=== PATIENT | male | born 2000 | race Caucasian/White ===

== ENCOUNTER 2020-07-14 20:43 | Emergency (ER) | payer SELFPAY ==
[2020-07-14] MEDS ORDERED: Ibuprofen 100 MG/5 ML UDCUP ONE (21:20)
[2020-07-15 17:59] LABS: SARS-CoV-2 PCR by NAA Not Detected (NotDetected)
== END 2020-07-14 21:32 | disposition home or self-care (01) ==
LOC: MADERS 20:43
DX: H92.01 Otalgia, right ear (principal); J02.9 Acute pharyngitis, unspecified; R05 Cough; Z20.822 Contact with and (suspected) exposure to COVID-19
CPT/HCPCS: 87635; 99284; U0003; U0005

== ENCOUNTER 2020-12-27 17:09 | Emergency (ER) | payer SELFPAY ==
[2020-12-28 12:05] LABS: SARS-CoV-2 PCR by NAA DETECTED (NotDetected)
== END 2020-12-27 18:41 | disposition home or self-care (01) ==
LOC: MADERS 17:09
DX: U07.1 COVID-19 (principal)
CPT/HCPCS: 99284; U0003; U0005

== ENCOUNTER 2021-03-02 13:10 | Emergency (ER) | payer OTHER, SELFPAY ==
[2021-03-02] MEDS ORDERED: Ibuprofen 600 MG TAB ONE (13:56)
== END 2021-03-02 14:13 | disposition home or self-care (01) ==
LOC: MADERS 13:10
DX: S80.01XA Contusion of right knee, initial encounter (principal); V59.50XA Passenger in pick-up truck or van injured in collision with unspecified motor vehicles in traffic accident, initial encounter

== ENCOUNTER 2021-03-05 15:30 | Emergency (ER) | payer SELFPAY | END 2021-03-05 16:40 | disposition home or self-care (01) | LOC: MADERS 15:30 | DX: S50.01XA Contusion of right elbow, initial encounter (principal); W18.30XA Fall on same level, unspecified, initial encounter ==

== ENCOUNTER 2021-07-21 12:40 | Emergency (ER) | payer OTHER, SELFPAY ==
[2021-07-21] MEDS ORDERED: Ibuprofen 800 MG TAB ONE (13:59)
== END 2021-07-21 14:08 | disposition home or self-care (01) ==
LOC: MADERS 12:40
DX: S93.401A Sprain of unspecified ligament of right ankle, initial encounter (principal); W01.0XXA Fall on same level from slipping, tripping and stumbling without subsequent striking against object, initial encounter

== ENCOUNTER 2021-12-15 15:12 | Emergency (ER) | payer SELFPAY ==
[2021-12-15] MEDS ORDERED: Boostrix 0.5 ML (Tdap) VIAL ONE (15:27)
[2021-12-15] MEDS ORDERED: Lidocaine 1%/Epinephrine 1:100K 10 ML VIAL ONE (15:28)
[2021-12-15] MEDS ORDERED: Bacitracin 1 PK ONE (15:39)
[2021-12-15] MEDS ORDERED: Ibuprofen 800 MG TAB ONE (15:39)
== END 2021-12-15 16:02 | disposition home or self-care (01) ==
LOC: MADERS 15:12
DX: S01.01XA Laceration without foreign body of scalp, initial encounter (principal); W50.0XXA Accidental hit or strike by another person, initial encounter; Z23 Encounter for immunization
CPT/HCPCS: 12002; 90471; 90715

== ENCOUNTER 2021-12-24 15:16 | Emergency (ER) | payer SELFPAY | END 2021-12-24 15:45 | disposition home or self-care (01) | LOC: MADERS 15:16 | DX: S01.01XD Laceration without foreign body of scalp, subsequent encounter (principal) ==

== ENCOUNTER 2023-04-10 10:34 | Emergency (ER) | payer SELFPAY ==
[2023-04-10] MEDS ORDERED: Ibuprofen 800 MG TAB ONE (11:08)
== END 2023-04-10 11:14 | disposition home or self-care (01) ==
LOC: MADERS 10:34
DX: K02.9 Dental caries, unspecified (principal)
CPT/HCPCS: 99282

== ENCOUNTER 2023-11-26 10:10 | Emergency (ER) | payer SELFPAY | END 2023-11-26 10:51 | disposition home or self-care (01) | LOC: MADERS 10:10 | DX: B35.3 Tinea pedis (principal) | CPT/HCPCS: 99282 ==

== ENCOUNTER 2024-02-13 21:01 | Emergency (ER) | payer SELFPAY ==
[2024-02-13] MEDS ORDERED: Fluconazole 100 MG TAB ONE (21:26)
[2024-02-13] MEDS ORDERED: predniSONE 20 MG TAB ONE (21:27)
== END 2024-02-13 21:46 | disposition home or self-care (01) ==
LOC: MADERS 21:01
DX: R21 Rash and other nonspecific skin eruption (principal)
CPT/HCPCS: 99282; J7512